=== PATIENT | female | born 1960 | race Caucasian/White ===

== ENCOUNTER 2018-12-19 21:12 | Emergency (ER) | payer MEDICARE, OTHER ==
[~2018-12-19] VITALS: Ht 160 cm; Wt 59.0 kg
[2018-12-20] MEDS ORDERED: KETOROLAC 30MG/ML VIAL IM ONE
[2018-12-20 00:26] VITALS: BP 95/56
== END 2018-12-20 00:29 | disposition home or self-care (01) ==
LOC: ER 21:12
DX: H66.91 Otitis media, unspecified, right ear (principal); H60.91 Unspecified otitis externa, right ear; M32.9 Systemic lupus erythematosus, unspecified; F17.200 Nicotine dependence, unspecified, uncomplicated
CPT/HCPCS: 96372; 99283; J1885